=== PATIENT | male | born 1940 | race Caucasian/White ===

== ENCOUNTER 2016-12-13 08:44 | Outpatient (CLI) ==
[2016-05-02 10:37] VITALS: BMI 24.4
[2016-12-13 09:13] LABS: HEMATOCRIT 40.2 % (42.0-52.0); HEMOGLOBIN 12.7 g/dl (14.0-18.0); MEAN CORPUSCULAR HEMOGLOBIN 29.1 pg (27.0-31.0); MEAN CORPUSCULAR HGB CONC 31.6 (31.8-35.4); MEAN CORPUSCULAR VOLUME 92.2 fl (80.0-94.0); RED BLOOD COUNT 4.36 10^6/ul (4.70-6.10); WHITE BLOOD COUNT 9.03 K/ul (4.2-10.2)
[2016-12-13 09:15] LABS: BILIRUBIN,URINE Negative (NEGATIVE); KETONES,URINE Negative (NEGATIVE); LEUKOCYTE ESTERASE ,URINE Negative (NEGATIVE); NITRITE,URINE Negative (NEGATIVE); PH,URINE 5.5 (5-9); PROTEIN,URINE Negative (NEGATIVE); URINE, BLOOD 1+ (NEGATIVE)
[2016-12-13 09:18] LABS: ADD URINE MICROSCOPIC YES
[2016-12-13 09:52] LABS: ALBUMIN 3.4 g/dL (3.4-5.0); ANION GAP 14.9; BUN/CREATININE RATIO 10.43; CALCIUM 8.9 mg/dL (8.2-10.2); CREATININE 2.97 mg/dL (0.60-1.10); MAGNESIUM 2.4 mg/dL (1.7-2.2); PHOSPHORUS 4.3 mg/dL (2.3-3.7); POTASSIUM 4.9 mmol/L (3.5-5.1); URIC ACID 6.5 mg/dL (2.6-7.2)
[2016-12-14 08:15] LABS: URINE CREATINE 94.7 mg/dL (Not Estab.)
== END 2016-12-13 08:45 | disposition home or self-care (01) ==
LOC: LAB 08:44
PROVIDERS: ATTEND Internal Medicine Nephrology
DX: N18.4 Chronic kidney disease, stage 4 (severe) (principal); I10 Essential (primary) hypertension
CPT/HCPCS: 36415; 80069; 81001; 82306; 82570; 83735; 83970; 84156; 84550; 85027

== ENCOUNTER 2017-02-24 08:38 | Outpatient (CLI) ==
[2016-05-02 10:37] VITALS: BMI 24.4
[2017-02-24 08:57] LABS: HEMATOCRIT 41.8 % (42.0-52.0); HEMOGLOBIN 13.3 g/dl (14.0-18.0); MEAN CORPUSCULAR HEMOGLOBIN 29.7 pg (27.0-31.0); MEAN CORPUSCULAR HGB CONC 31.8 (31.8-35.4); MEAN CORPUSCULAR VOLUME 93.3 fl (80.0-94.0); RED BLOOD COUNT 4.48 10^6/ul (4.70-6.10); WHITE BLOOD COUNT 8.84 K/ul (4.2-10.2)
[2017-02-24 09:08] LABS: BILIRUBIN,URINE Negative (NEGATIVE); KETONES,URINE Negative (NEGATIVE); LEUKOCYTE ESTERASE ,URINE Negative (NEGATIVE); NITRITE,URINE Negative (NEGATIVE); PH,URINE 5.5 (5-9); PROTEIN,URINE Negative (NEGATIVE); URINE, BLOOD Trace-lysed (NEGATIVE)
[2017-02-24 09:14] LABS: ADD URINE MICROSCOPIC YES
[2017-02-24 09:52] LABS: ALBUMIN 3.4 g/dL (3.4-5.0); ANION GAP 13.9; BUN/CREATININE RATIO 8.53; CALCIUM 8.7 mg/dL (8.2-10.2); CREATININE 3.28 mg/dL (0.60-1.10); MAGNESIUM 2.4 mg/dL (1.7-2.2); PHOSPHORUS 3.6 mg/dL (2.3-3.7); POTASSIUM 3.9 mmol/L (3.5-5.1); URIC ACID 7.2 mg/dL (2.6-7.2)
[2017-02-27 10:37] LABS: URINE CREATINE 134.2 mg/dL (Not Estab.)
== END 2017-02-24 08:39 | disposition home or self-care (01) ==
LOC: LAB 08:38
PROVIDERS: ATTEND Internal Medicine Nephrology
DX: N18.4 Chronic kidney disease, stage 4 (severe) (principal); E55.9 Vitamin D deficiency, unspecified; I10 Essential (primary) hypertension
CPT/HCPCS: 36415; 80069; 81001; 82306; 82570; 83735; 83970; 84156; 84550; 85027

== ENCOUNTER 2017-05-25 08:09 | Outpatient (CLI) ==
[2016-05-02 10:37] VITALS: BMI 24.4
[2017-05-25 08:29] LABS: HEMATOCRIT 40.4 % (42.0-52.0); HEMOGLOBIN 12.7 g/dl (14.0-18.0); MEAN CORPUSCULAR HEMOGLOBIN 29.5 pg (27.0-31.0); MEAN CORPUSCULAR HGB CONC 31.4 (31.8-35.4); MEAN CORPUSCULAR VOLUME 93.7 fl (80.0-94.0); RED BLOOD COUNT 4.31 10^6/ul (4.70-6.10); WHITE BLOOD COUNT 8.88 K/ul (4.2-10.2)
[2017-05-25 09:18] LABS: ALBUMIN 3.3 g/dL (3.4-5.0); ANION GAP 15.5; BUN/CREATININE RATIO 10.59; CALCIUM 9.1 mg/dL (8.2-10.2); CREATININE 3.21 mg/dL (0.60-1.10); MAGNESIUM 2.6 mg/dL (1.7-2.2); PHOSPHORUS 4.2 mg/dL (2.3-3.7); POTASSIUM 4.5 mmol/L (3.5-5.1); URIC ACID 7.6 mg/dL (2.6-7.2)
[2017-05-25 12:02] LABS: BILIRUBIN,URINE Negative (NEGATIVE); KETONES,URINE Negative (NEGATIVE); LEUKOCYTE ESTERASE ,URINE Negative (NEGATIVE); NITRITE,URINE Negative (NEGATIVE); PH,URINE 5.5 (5-9); PROTEIN,URINE Negative (NEGATIVE); URINE, BLOOD Negative (NEGATIVE)
[2017-05-25 12:11] LABS: ADD URINE MICROSCOPIC NO
[2017-05-26 06:16] LABS: URINE CREATINE 158.4 mg/dL (Not Estab.)
== END 2017-05-25 08:10 | disposition home or self-care (01) ==
LOC: LAB 08:09
PROVIDERS: ATTEND Internal Medicine Nephrology
DX: N18.4 Chronic kidney disease, stage 4 (severe) (principal); I10 Essential (primary) hypertension
CPT/HCPCS: 36415; 80069; 81001; 82306; 82570; 83735; 83970; 84156; 84550; 85027

== ENCOUNTER 2017-12-13 08:42 | Outpatient (CLI) ==
[2016-05-02 10:37] VITALS: BMI 24.4
== END 2017-12-13 08:43 | disposition home or self-care (01) ==
LOC: LAB 08:42
PROVIDERS: ATTEND Internal Medicine Nephrology
DX: N18.4 Chronic kidney disease, stage 4 (severe) (principal); E55.9 Vitamin D deficiency, unspecified; I10 Essential (primary) hypertension
CPT/HCPCS: 36415; 80069; 81001; 82306; 82570; 83735; 83970; 84156; 84550; 85027

== ENCOUNTER 2018-01-25 10:04 | Outpatient (CLI) ==
[2016-05-02 10:37] VITALS: BMI 24.4
== END 2018-01-25 10:05 | disposition home or self-care (01) ==
LOC: LAB 10:04
PROVIDERS: ATTEND Internal Medicine Nephrology
DX: N18.4 Chronic kidney disease, stage 4 (severe) (principal); I10 Essential (primary) hypertension
CPT/HCPCS: 36415; 80069; 81001; 82306; 82570; 83735; 83970; 84156; 84550; 85027

== ENCOUNTER 2018-04-09 15:21 | Emergency (ER) ==
[2018-04-09 15:30] VITALS: TEMP 99.4; BMI 25.0
--- NOTE | 2018-04-09 15:51 | ED.PDOC ---
General ED Provider: Dr. YAMEL CORDERO Chief Complaint: Shortness of Air Stated Complaint: Pt with history of pneumonia presents to the ER with c/o shortness of air associated productive cough for the past 3 days. Time Seen by Physician: 15:30 Mode of Arrival: Walk-In Information Source: Patient Exam Limitations: No limitations Primary Care Provider: TYLER STEPHENS Nursing and Triage Documentation Reviewed and Agree: Yes Reviewed sepsis parameters & appropriate labs ordered?: Yes System Inflammatory Response Syndrome: Not Applicable Sepsis Protocol: For patient's 13 years and over: Temp is 96.8 and below OR 101 and greater Pulse >90 BPM Resp >20/minute Acutely Altered Mental Status Are patient's symptoms suggestive of a new infection, such as: -Pneumonia -Skin, Soft Tissue -Endocarditis -UTI -Bone, Joint Infection -Implantable Device -Acute Abdominal Infection -Wound Infection -Meningitis -Blood Stream Catheter Infection -Unknown Respiratory Complaint Exam - Shortness of Air Complaint/Exam Onset/Duration: 2 days Symptoms Are: Still present Timing: Constant Initial Severity: Moderate Current Severity: Moderate Character: Reports: Dyspnea on exertion, Orthopnea Aggravating: Reports: Movement Alleviating: Reports: Upright position Associated Signs and Symptoms: Reports: Cough, Chest pain with cough, Fever ( subjective lower grade fever at home), Dizziness, Labored breathing. Denies: Wheezing, Chest pain, Chills, Diaphoresis, Nasal congestion, Calf pain, Calf swelling, Edema, Rapid breathing, Decreased intake Related History: Reports: Similar episode (history of pneumonia ) History of Healthcare-Acquired Pneumonia: No Pulmonary Embolism Risk Factors: Reports: None, Smoking Cardiac Risk Factors: Reports: Smoking, Hypertension Pseudomonas Risk Factors: Reports: Chronic Lung Disease Tuberculosis Risk Factors: Reports: None Home Oxygen Use: No Recent Stress Test: No Recent Echo/LV Function: No Respiratory Distress: Mild Stridor Present: No Tracheal Deviation: No Subcutaneous Emphysema: No Accessory Muscle Use: No Retractions: Not Present Diminished Breath Sounds: No Prolonged Expiratory Phase: No Unable to Speak Full Sentences: No Fatigue: Yes Leg Swelling: No Sandy's Sign Present: No Grunting Respirations: No Kussmaul Respirations: No Differential Diagnoses: CHF, COPD Exacerbation, Pneumonia, Bronchitis, RSV Quality Indicators for Cardiac Chest Pain: EKG in 10min. Quality Indicator For Non-Traumatic Chest Pain/Syncope: EKG Performed Quality Indicators For Pneumonia/CAP: Antibiotics in 6hr-admit, SpO2 assessed ( ), Mental status assessed Review of Systems - Review Of Systems Constitutional: Reports: Chills, Fever (subjective lower grade fever at home), Sweats, Loss of appetite Eyes: Reports: No symptoms Ears, Nose, Mouth, Throat: Reports: No symptoms Respiratory: Reports: Cough, Orthopnea, Short of air, Wheezing Cardiac: Reports: No symptoms GI: Reports: No symptoms : Reports: No symptoms Musculoskeletal: Reports: No symptoms Skin: Reports: No symptoms Neurological: Reports: No symptoms Endocrine: Reports: No symptoms Hematologic/Lymphatic: Reports: No symptoms All Other Systems: Reviewed and Negative Past Medical History - Past Medical History Previously Healthy: No Endocrine: Reports: None Cardiovascular: Reports: Hypertension Respiratory: Reports: COPD Hematological: Reports: None Gastrointestinal: Reports: None Genitourinary: Reports: None Neuro/Psych: Reports: None Musculoskeletal: Reports: Arthritis, Back Pain Cancer: Reports: None - Surgical History General Surgical History: Reports: Unknown - Family History Family History: Reports: Unknown - Social History Smoking Status: Current every day smoker, Heavy tobacco smoker Hx Substance Use: No Alcohol Screening: None Physical Exam - Physical Exam Appearance: Ill-appearing Ill-appearing: Mild Pain Distress: None Eyes: BIANCA, EOMI, Conjunctiva clear ENT: Ears normal Respiratory: Airway patent, Rhonchi, Wheezes Cardiovascular: RRR, Pulses normal, No rub, No murmur GI/: Soft, Nontender, No masses, Bowel sounds normal Musculoskeletal: Normal strength, ROM intact, No edema, No calf tenderness Skin: Warm, Dry, Normal color Neurological: Sensation intact, Motor intact, Reflexes intact, Cranial nerves intact, Alert, Oriented Psychiatric: Affect appropriate Interpretation - Radiology Interpretation Radiology Interpretation By: Radiologist Radiology Results: No acute changes - Reed Fixer Rate: Normal Rhythm: Sinus Ectopy: None - EKG Interpretation Rate: Normal Rhythm: Sinus Ectopy: None [place]: NL ST Segment: Normal Physician Notification - Case Discussed Physician Notified: pmd Time of Notification: 16:58 (transfer now) Critical Care Note - Critical Care Note Total Time (mins): 0 Course - Course Hematology/Chemistry: 04/09/18 15:59 04/09/18 15:59 Orders, Labs, Meds: Lab Review 04/09/18 04/09/18 04/09/18 15:45 15:59 15:59 WBC 11.73 H RBC 3.55 L Hgb 10.4 L Hct 32.1 L MCV 90.4 MCH 29.3 MCHC 32.4 RDW Coeff of Bradley 14.4 Plt Count 219 Immature Gran % (Auto) 0.3 Neut % (Auto) 70.8 Lymph % (Auto) 16.8 [place] % (Auto) 9.0 Eos % (Auto) 2.5 Baso % (Auto) 0.6 Immature Gran # (Auto) 0.0 Neut # (Auto) 8.3 H Lymph # (Auto) 2.0 [place] # (Auto) 1.1 Eos # (Auto) 0.3 Baso # (Auto) 0.1 PT 11.0 INR 1.10 Puncture Site Rr O2 Saturation 90.0 L ABG pH 7.409 ABG pCO2 35.0 ABG pO2 57.0 L* ABG HCO3 22.1 ABG Total CO2 23 ABG Base Excess -3 L Maldonado Test + FiO2 % 21.0 Sodium Potassium Chloride Carbon Dioxide Anion Gap BUN Creatinine Estimated GFR (MDRD) BUN/Creatinine Ratio Glucose Lactic Acid Calcium Total Bilirubin AST ALT Alkaline Phosphatase Total Creatine Kinase Troponin I B-Natriuretic Peptide Total Protein Albumin Globulin Albumin/Globulin Ratio Urine Color Urine Clarity Urine pH Ur Specific [place] Urine Protein Urine Glucose (UA) Urine Ketones Urine Blood Urine Nitrite Urine Bilirubin Urine Urobilinogen Ur Leukocyte Esterase Ur Squamous Epith Cells Urine Mucus 04/09/18 04/09/18 04/09/18 15:59 15:59 15:59 WBC RBC Hgb Hct MCV MCH MCHC RDW Coeff of [place] Plt Count Immature Gran % (Auto) Neut % (Auto) Lymph % (Auto) [place] % (Auto) Eos % (Auto) Baso % (Auto) Immature Gran # (Auto) Neut # (Auto) Lymph # (Auto) [place] # (Auto) Eos # (Auto) Baso # (Auto) PT INR Puncture Site O2 Saturation ABG pH ABG pCO2 ABG pO2 ABG HCO3 ABG Total CO2 ABG Base Excess Maldonado Test FiO2 % Sodium 143 Potassium 4.6 Chloride 111 H Carbon Dioxide 20 L Anion Gap 16.6 BUN 32 H Creatinine 3.45 H Estimated GFR (MDRD) 17.00 BUN/Creatinine Ratio 9.27 Glucose 101 Lactic Acid 5.1 Calcium 8.5 Total Bilirubin 0.3 AST 7 L ALT 7 L Alkaline Phosphatase 77 Total Creatine Kinase 84 Troponin I 0.0250 B-Natriuretic Peptide 109 H Total Protein 5.9 Albumin 3.0 L Globulin 2.9 Albumin/Globulin Ratio 1.03 Urine Color Urine Clarity Urine pH Ur Specific [place] Urine Protein Urine Glucose (UA) Urine Ketones Urine Blood Urine Nitrite Urine Bilirubin Urine Urobilinogen Ur Leukocyte Esterase Ur Squamous Epith Cells Urine Mucus 04/09/18 16:15 WBC RBC Hgb Hct MCV MCH MCHC RDW Coeff of [place] Plt Count Immature Gran % (Auto) Neut % (Auto) Lymph % (Auto) [place] % (Auto) Eos % (Auto) Baso % (Auto) Immature Gran # (Auto) Neut # (Auto) Lymph # (Auto) [place] # (Auto) Eos # (Auto) Baso # (Auto) PT INR Puncture Site O2 Saturation ABG pH ABG pCO2 ABG pO2 ABG HCO3 ABG Total CO2 ABG Base Excess [place] Test FiO2 % Sodium Potassium Chloride Carbon Dioxide Anion Gap BUN Creatinine Estimated GFR (MDRD) BUN/Creatinine Ratio Glucose Lactic Acid Calcium Total Bilirubin AST ALT Alkaline Phosphatase Total Creatine Kinase Troponin I B-Natriuretic Peptide Total Protein Albumin Globulin Albumin/Globulin Ratio Urine Color Yellow Urine Clarity Clear Urine pH 5.5 Ur Specific [place] 1.020 Urine Protein 1+ Urine Glucose (UA) Negative Urine Ketones Negative Urine Blood Negative Urine Nitrite Negative Urine Bilirubin Negative Urine Urobilinogen 0.2 Ur Leukocyte Esterase Negative Ur Squamous Epith Cells Not present Urine Mucus Trace Orders Category Date Time Status ABG DRAW REQUEST Stat CARDIO 04/09/18 15:45 Completed EKG-(ED ONLY) Stat CARDIO 04/09/18 15:37 Completed NEBULIZER TREATMENT Stat CARDIO 04/09/18 16:10 Ordered OXYGEN Routine CARDIO 04/09/18 16:23 Ordered ABG Stat LAB 04/09/18 15:45 Completed B-TYPE NATRIURETIC PEPTIDE Stat LAB 04/09/18 15:59 Completed BLOOD CULTURE Stat LAB 04/09/18 15:59 Received CBC W/ AUTO DIFF Stat LAB 04/09/18 15:59 Completed COMPREHENSIVE METABOLIC PANEL Stat LAB 04/09/18 15:59 Completed CREATINE KINASE Stat LAB 04/09/18 15:59 Completed LACTIC ACID Stat LAB 04/09/18 16:45 Ordered PROCALCITONIN Stat LAB 04/09/18 Ordered PT WITH INR Stat LAB 04/09/18 15:59 Completed TROPONIN I Stat LAB 04/09/18 15:59 Completed URINALYSIS C & S IF INDICATED Stat LAB 04/09/18 16:15 Completed Ipratropium/Albuterol Neb [Duoneb] MEDS 04/09/18 16:10 Discontinued 1 vial NEB ONCE STA CT CHEST W/O CONTRAST Stat RADS 04/09/18 15:48 Completed Medications Discontinued Medications Generic Name Dose Route Start Last Admin Trade Name Mandi PRN Reason Stop Dose Admin Albuterol/Ipratropium 1 vial 04/09/18 16:10 Duoneb NEB 04/09/18 16:11 ONCE STA Vital Signs: Temp Pulse Resp BP Pulse Ox 04/09/18 15:23 99.4 F 73 20 166/60 H 88 L Departure - Departure Time of Disposition: 05:30 Disposition: TSF SHORT-TRM HOSP Discharge Problem: COPD exacerbation, Renal insufficiency Renal failure Qualifiers: Renal failure chronicity: chronic Chronic kidney disease stage: stage 4 (severe ) Qualified Code(s): N18.4 - Chronic kidney disease, stage 4 (severe) Instructions: COPD (Chronic Obstructive Pulmonary Disease) (ED) Condition: Good Pt referred to PMD for follow-up: Yes IPMP verified?: No Additional Instructions: Please call your Family Physician as soon as possible to schedule a follow-up appointment. Allergies/Adverse Reactions: Allergies morphine Adverse Reaction (Verified 04/09/18 15:29) Home Medications: Ambulatory Orders Losartan Potassium [Cozaar] 100 mg PO BID 01/20/14 Nifedipine [Nifedical Xl] 30 mg PO DAILY 01/20/14 Tamsulosin HCl [Flomax] 0.4 mg PO DAILY 01/20/14 Tramadol HCl [Ultram] 100 mg PO BID PRN 01/20/14 Fluticasone Propionate [Flonase] 1 spray NS DAILY PRN 08/13/14 Gabapentin 300 mg PO BEDTIME 08/13/14 Cholecalciferol (Vitamin D3) [D3-2000] 1 units PO DAILY 05/10/15 Omeprazole 1 cap PO DAILY 05/10/15 Ipratropium/Albuterol Sulfate [Combivent Respimat Inhal [place]] 4 gm IH QID #1 aer.w.adap 05/13/15 Cyanocobalamin (Vitamin B-12) [Vitamin B12] 2,500 mcg PO BID 04/09/18 Disposition Discussed With: Patient, Family
[2018-04-09] MEDS ORDERED: DUONEB NEB STA (16:10)
--- NOTE | 2018-04-09 16:39 | CT ---
EXAM: CT of the chest without contrast History: Short of breath Comparison: Chest radiograph 09/07/2017, chest CT 08/13/2014 Technique: Multiplanar CT images through the thorax were obtained without the administration of IV c ontrast Findings: Heart size is borderline enlarged. No pericardial effusion. No thoracic aortic aneurysm. No pathologically enlarged thoracic lymph nodes. Calcified granulomas are again seen within the tho rax. Diffuse bronchial wall thickening. No consolidated pneumonia. Subtle scattered tree-in-bud op acities. No pleural fluid and no pneumothorax. No suspicious lung masses or lung nodules. Within the visualized upper abdomen, status post cholecystectomy. Stable simple hepatic cyst. Calci fied granulomas within the spleen. 1.2 cm hyperattenuating left renal cortical lesion. No acute osse ous abnormalities. Degenerative changes of the spine. Impression: 1. Bronchial wall thickening and subtle tree in bud opacities compatible with infectious or inflamma tory process. There is no consolidated pneumonia. 2. Borderline cardiomegaly. 3. 1.2 cm hyperattenuating left renal cortical lesion could represent a hemorrhagic or proteinaceous cyst but is indeterminate. Recommend correlation with ultrasound.
[2018-04-09] MEDS ORDERED: SOLU-MEDROL 125 MG IVP STA (16:54)
[2018-04-09] MEDS ORDERED: ROCEPHIN 2 GM in SODIUM CHLORIDE 100 ML IV STA (16:59)
[2018-04-09] MEDS ORDERED: ROCEPHIN ONE (17:05)
[2018-04-09 17:14] VITALS: BP 147/71
== END 2018-04-09 18:05 | disposition short-term general hospital (02) ==
LOC: ED 15:21
DX: J44.1 Chronic obstructive pulmonary disease with (acute) exacerbation (principal); N18.4 Chronic kidney disease, stage 4 (severe); R06.02 Shortness of breath; I10 Essential (primary) hypertension; F17.210 Nicotine dependence, cigarettes, uncomplicated; Z79.899 Other long term (current) drug therapy
CPT/HCPCS: 36415; 80053; 81001; 82550; 82803; 83605; 83880; 84145; 84484; 85025; 85610; 87040; 87070; 87186; 93005; 93010; 94640; 96365; 96375; 99285

== ENCOUNTER 2018-04-26 13:02 | Outpatient (CLI) ==
[2018-04-26 14:50] VITALS: BMI 25.1
== END 2018-04-26 13:03 | disposition home or self-care (01) ==
LOC: DIETCN 13:02
PROVIDERS: ATTEND Internal Medicine Nephrology
DX: E63.9 Nutritional deficiency, unspecified (principal); N18.4 Chronic kidney disease, stage 4 (severe); I10 Essential (primary) hypertension
CPT/HCPCS: 36415; 80069; 81001; 82306; 82570; 83735; 83970; 84156; 84550; 85025

== ENCOUNTER 2018-08-06 10:25 | Outpatient (CLI) | END 2018-08-06 10:26 | disposition home or self-care (01) | LOC: LAB 10:25 | PROVIDERS: ATTEND Internal Medicine Nephrology | DX: N18.4 Chronic kidney disease, stage 4 (severe) (principal); I10 Essential (primary) hypertension | CPT/HCPCS: 36415; 80069; 81001; 82306; 82570; 83735; 83970; 84156; 84550; 85027 ==

== ENCOUNTER 2018-11-07 09:32 | Outpatient (CLI) | END 2018-11-07 09:33 | disposition home or self-care (01) | LOC: LAB 09:32 | PROVIDERS: ATTEND Internal Medicine Nephrology | DX: N18.4 Chronic kidney disease, stage 4 (severe) (principal); I10 Essential (primary) hypertension | CPT/HCPCS: 36415; 80069; 81001; 82306; 82570; 83735; 83970; 84156; 84550; 85027 ==

== ENCOUNTER 2018-11-09 07:55 | Outpatient (CLI) | END 2018-11-09 07:56 | disposition home or self-care (01) | LOC: CAR 07:55 | PROVIDERS: ATTEND Family Medicine | DX: G47.00 Insomnia, unspecified (principal) | CPT/HCPCS: 82803 ==

== ENCOUNTER 2019-02-05 09:25 | Outpatient (CLI) | END 2019-02-05 09:26 | disposition home or self-care (01) | LOC: LAB 09:25 | PROVIDERS: ATTEND Internal Medicine Nephrology | DX: N18.4 Chronic kidney disease, stage 4 (severe) (principal) | CPT/HCPCS: 36415; 80053; 81001; 82306; 82570; 83735; 83970; 84100; 84156; 84550; 85007; 85025 ==